=== PATIENT | female | born 1970 | race African-American/Black ===

== ENCOUNTER 2016-04-19 14:58 | Inpatient (IN) | payer MEDICARE ==
[~2016-04-19] VITALS: Ht 172.7 cm; Wt 83.1 kg
[~2016-04-19 14:58] MED LIST: UNKNOWN MEDICATIONS; [UNRECOGNIZED DRUG - OTHER]
[2016-04-19 19:13] VITALS: BP 126/73
[2016-04-19] MEDS ORDERED: INFLUENZA VIRUS VACCINE QVS 2016-17 (3YR+)/PF 60 MCG/0.5 ML SYRINGE IM ONE (19:15)
[2016-04-19] MEDS: OLANZapine 7.5 MG TABLET PO SCH (20:43)
[2016-04-20] MEDS ORDERED: LORazepam 2 MG/ML VIAL IM ONE ×2 (08:00→11:45)
[2016-04-20] MEDS ORDERED: DiphenhydrAMINE HCL 50 MG/ML VIAL IM ONE ×2 (08:00→11:45)
[2016-04-20] MEDS ORDERED: HALOPERIDOL LACTATE 5 MG/ML VIAL IM ONE ×2 (08:00→11:45)
[2016-04-20 08:08] VITALS: BP 125/92
[2016-04-20 08:40] LABS: BASOPHILS % (AUTO) 0.6 % (0.0-2.0); EOSINOPHILS % (AUTO) 2.5 % (1.0-6.0); HEMATOCRIT 37.9 % (36-46); HEMOGLOBIN 11.9 g/dL (12.0-16.0); LYMPHOCYTES # (AUTO) 1.4 K/uL (1.0-4.8); LYMPHOCYTES % (AUTO) 28.1 % (22.0-44.0); MEAN CORPUSCULAR HGB CONC 31.5 G/dL (31.0-37.0); MEAN CORPUSCULAR VOLUME 86 fL (80-100); MONOCYTES # (AUTO) 0.7 K/uL (0.1-1.0); MONOCYTES % (AUTO) 13.4 % (2.0-9.0); NEUTROPHILS # (AUTO) 2.8 K/uL (1.8-7.7); NEUTROPHILS % (AUTO) 55.4 % (40.0-70.0); PLATELET COUNT (AUTO) 243 K/uL (150-450); RED BLOOD CELL COUNT(AUTO) 4.41 MIL/uL (4.00-5.20); RED CELL DISTRIBUTION WIDTH 15.2 % (11.5-14.5)
[2016-04-20] MEDS: NICOTINE 21 MG/24 HOUR PATCH TD SCH (09:00)
[2016-04-20 09:05] LABS: HEMOGLOBIN A1C 5.7 % (4.5-6.2)
[2016-04-20 09:15] LABS: ALANINE AMINOTRANSFERASE 35 U/L (12-78); ALBUMIN 3.3 g/dL (3.4-5.0); ANION GAP 8 mmol/L (8-16); ASPARTATE AMINOTRANSFERASE 20 U/L (15-37); BILIRUBIN,TOTAL 0.3 mg/dL (0.1-1.0); CALCIUM, TOTAL 8.2 mg/dL (8.8-10.5); CARBON DIOXIDE 29 mmol/L (22-29); CHLORIDE 100 mmol/L (98-107); CREATININE 0.95 mg/dL (0.60-1.30); GLOMERULAR FILTR. RATE CALC > 60 mL/min (>60); POTASSIUM 4.4 mmol/L (3.5-5.1); SODIUM SERUM 137 mmol/L (136-145); THYROID STIMULATING HORMONE 1.74 uIU/mL (0.36-3.74); TOTAL PROTEIN, SERUM 6.4 g/dL (6.4-8.2); UREA NITROGEN, BLOOD 16 mg/dL (7-18)
[2016-04-20] MEDS ORDERED: IBUPROFEN 600 MG TABLET PO PRN (10:30)
[2016-04-20] MEDS ORDERED: ACETAMINOPHEN 325 MG TABLET PO PRN (10:30)
[2016-04-20] MEDS ORDERED: ONDANSETRON HCL 4 MG TABLET PO PRN (10:30)
[2016-04-20] MEDS ORDERED: ALBUTEROL SULFATE HFA 90 MCG/PUFF 8 GM INHALER IH PRN (10:30)
[2016-04-20] MEDS ORDERED: MAGNESIUM HYDROXIDE SUSPENSION 30 ML UDCUP PO PRN (10:30)
[2016-04-20] MEDS ORDERED: LOPERAMIDE HCL 2 MG CAPSULE PO PRN (10:30)
[2016-04-20] MEDS ORDERED: BENZOCAINE/MENTHOL LOZENGE MM PRN (10:30)
[2016-04-20] MEDS ORDERED: BACITRACIN 28.4 GM OINTMENT TP PRN (10:30)
[2016-04-20] MEDS ORDERED: MAG HYDROX/AL HYDROX/SIMETH ES 30 ML SUSPENSION UDCUP PO PRN (10:30)
[2016-04-20] MEDS ORDERED: CloNIDine HCL 0.1 MG TABLET PO PRN (10:30)
[2016-04-20] MEDS ORDERED: PETROLATUM,WHITE 71 GM JELLY TP PRN (10:30)
[2016-04-20 16:12] VITALS: BP 104/56
[2016-04-20] MEDS: LORazepam 2 MG TABLET PO PRN (20:26)
[2016-04-20] MEDS: OLANZapine 7.5 MG TABLET PO SCH (20:26)
[2016-04-20] MEDS: HALOPERIDOL 5 MG TABLET PO PRN (20:43)
[2016-04-21] MEDS ORDERED: LORazepam 2 MG/ML VIAL ONE (02:57)
[2016-04-21] MEDS ORDERED: DiphenhydrAMINE HCL 50 MG/ML VIAL ONE (02:57)
[2016-04-21] MEDS ORDERED: HALOPERIDOL LACTATE 5 MG/ML VIAL ONE (02:57)
[2016-04-21] MEDS ORDERED: LORazepam 2 MG/ML VIAL IM ONE (03:15)
[2016-04-21] MEDS ORDERED: HALOPERIDOL LACTATE 5 MG/ML VIAL IM ONE (03:15)
[2016-04-21] MEDS ORDERED: DiphenhydrAMINE HCL 50 MG/ML VIAL IM ONE (03:15)
[2016-04-21] MEDS: NICOTINE 21 MG/24 HOUR PATCH TD SCH (08:30)
[2016-04-21] MEDS: OLANZapine 7.5 MG TABLET PO SCH (21:00)
[2016-04-22 01:21] VITALS: BP 134/71
[2016-04-22 08:43] VITALS: BP 129/76
[2016-04-22] MEDS: NICOTINE 21 MG/24 HOUR PATCH TD SCH (08:51)
[2016-04-22] MEDS ORDERED: LORazepam 2 MG/ML VIAL ONE (09:26)
[2016-04-22] MEDS ORDERED: HALOPERIDOL LACTATE 5 MG/ML VIAL ONE (09:26)
[2016-04-22] MEDS ORDERED: DiphenhydrAMINE HCL 50 MG/ML VIAL ONE (09:26)
[2016-04-22] MEDS ORDERED: DiphenhydrAMINE HCL 50 MG/ML VIAL IM ONE (09:30)
[2016-04-22] MEDS ORDERED: HALOPERIDOL LACTATE 5 MG/ML VIAL IM ONE ×2 (09:30→10:45)
[2016-04-22] MEDS ORDERED: LORazepam 2 MG/ML VIAL IM ONE ×2 (09:30→10:45)
[2016-04-22 16:16] VITALS: BP 131/71
[2016-04-22] MEDS: OLANZapine 7.5 MG TABLET PO SCH (21:00)
[2016-04-23] MEDS ORDERED: HALOPERIDOL LACTATE 5 MG/ML VIAL IM ONE (05:00)
[2016-04-23] MEDS ORDERED: LORazepam 2 MG/ML VIAL IM ONE (05:00)
[2016-04-23] MEDS ORDERED: DiphenhydrAMINE HCL 50 MG/ML VIAL IM ONE (05:00)
[2016-04-23] MEDS: NICOTINE 21 MG/24 HOUR PATCH TD SCH (09:05)
[2016-04-23] MEDS: HALOPERIDOL 5 MG TABLET PO PRN (09:06)
[2016-04-23] MEDS: LORazepam 2 MG TABLET PO PRN ×2 (09:06→16:08)
[2016-04-23 16:05] VITALS: BP 136/79
[2016-04-23] MEDS: OLANZapine 7.5 MG TABLET PO SCH (20:34)
[2016-04-23] MEDS: ZOLPIDEM TARTRATE 10 MG TABLET PO PRN (20:39)
[2016-04-24] MEDS: LORazepam 2 MG TABLET PO PRN ×2 (02:37→21:36)
[2016-04-24] MEDS: HALOPERIDOL 5 MG TABLET PO PRN ×2 (02:37→21:36)
[2016-04-24] MEDS: NICOTINE 21 MG/24 HOUR PATCH TD SCH (08:32)
[2016-04-24 16:03] VITALS: BP 128/77
[2016-04-24] MEDS: OLANZapine 7.5 MG TABLET PO SCH ×2 (20:29→21:36)
[2016-04-25] MEDS ORDERED: HALOPERIDOL LACTATE 5 MG/ML VIAL ONE (00:07)
[2016-04-25] MEDS ORDERED: LORazepam 2 MG/ML VIAL ONE (00:07)
[2016-04-25] MEDS ORDERED: DiphenhydrAMINE HCL 50 MG/ML VIAL ONE (00:07)
[2016-04-25] MEDS ORDERED: HALOPERIDOL LACTATE 5 MG/ML VIAL IM ONE (00:15)
[2016-04-25] MEDS ORDERED: LORazepam 2 MG/ML VIAL IM ONE (00:15)
[2016-04-25] MEDS ORDERED: DiphenhydrAMINE HCL 50 MG/ML VIAL IM ONE (00:15)
[2016-04-25] MEDS: NICOTINE 21 MG/24 HOUR PATCH TD SCH (08:23)
[2016-04-25 08:30] VITALS: BP 126/67
[2016-04-25] MEDS: LORazepam 2 MG TABLET PO PRN (16:47)
[2016-04-25] MEDS: HALOPERIDOL 5 MG TABLET PO PRN (16:47)
[2016-04-25] MEDS: OLANZapine 7.5 MG TABLET PO SCH (21:04)
[2016-04-26] MEDS ORDERED: HALOPERIDOL LACTATE 5 MG/ML VIAL ONE (00:26)
[2016-04-26] MEDS ORDERED: DiphenhydrAMINE HCL 50 MG/ML VIAL ONE (00:26)
[2016-04-26] MEDS ORDERED: LORazepam 2 MG/ML VIAL ONE (00:26)
[2016-04-26] MEDS ORDERED: HALOPERIDOL LACTATE 5 MG/ML VIAL IM ONE (00:30)
[2016-04-26] MEDS ORDERED: LORazepam 2 MG/ML VIAL IM ONE (00:30)
[2016-04-26] MEDS ORDERED: DiphenhydrAMINE HCL 50 MG/ML VIAL IM ONE (00:30)
[2016-04-26] MEDS: LORazepam 2 MG TABLET PO PRN (08:28)
[2016-04-26] MEDS: NICOTINE 21 MG/24 HOUR PATCH TD SCH (08:29)
[2016-04-26] MEDS: OLANZapine 7.5 MG TABLET PO SCH (21:00)
[2016-04-27] MEDS ORDERED: DiphenhydrAMINE HCL 50 MG/ML VIAL ONE (02:48)
[2016-04-27] MEDS ORDERED: HALOPERIDOL LACTATE 5 MG/ML VIAL ONE (02:48)
[2016-04-27] MEDS ORDERED: LORazepam 2 MG/ML VIAL ONE (02:48)
[2016-04-27 02:55] VITALS: BP 115/67
[2016-04-27] MEDS: DiphenhydrAMINE HCL 50 MG/ML VIAL IM ONE ×2 (03:00→03:15)
[2016-04-27] MEDS: HALOPERIDOL LACTATE 5 MG/ML VIAL IM ONE ×2 (03:00→03:14)
[2016-04-27] MEDS: LORazepam 2 MG/ML VIAL IM ONE ×2 (03:00→03:14)
[2016-04-27] MEDS: LITHIUM CARBONATE 300 MG CAPSULE PO SCH ×2 (09:00→16:38)
[2016-04-27] MEDS: DIVALPROEX SODIUM 500 MG DR TABLET PO SCH ×2 (09:00→16:38)
[2016-04-27] MEDS: LORazepam 2 MG TABLET PO PRN ×2 (09:07→16:14)
[2016-04-27] MEDS: NICOTINE 21 MG/24 HOUR PATCH TD SCH (09:07)
[2016-04-27] MEDS ORDERED: DiphenhydrAMINE HCL 50 MG/ML VIAL IM ONE (12:30)
[2016-04-27] MEDS ORDERED: HALOPERIDOL LACTATE 5 MG/ML VIAL IM ONE (12:30)
[2016-04-27] MEDS ORDERED: LORazepam 2 MG/ML VIAL IM ONE (12:30)
[2016-04-27] MEDS: OLANZapine 10 MG TABLET PO SCH (21:00)
[2016-04-28 08:28] VITALS: BP 119/84
[2016-04-28] MEDS: LITHIUM CARBONATE 300 MG CAPSULE PO SCH ×2 (08:49→16:51)
[2016-04-28] MEDS: NICOTINE 21 MG/24 HOUR PATCH TD SCH (08:49)
[2016-04-28] MEDS: LORazepam 2 MG TABLET PO PRN ×2 (08:49→16:51)
[2016-04-28] MEDS: DIVALPROEX SODIUM 500 MG DR TABLET PO SCH ×2 (08:49→16:51)
[2016-04-28 16:14] VITALS: BP 109/59
[2016-04-28] MEDS: OLANZapine 10 MG TABLET PO SCH (21:03)
[2016-04-29 08:01] VITALS: BP 129/64
[2016-04-29] MEDS: NICOTINE 21 MG/24 HOUR PATCH TD SCH (09:00)
[2016-04-29] MEDS: LITHIUM CARBONATE 300 MG CAPSULE PO SCH ×2 (10:02→16:17)
[2016-04-29] MEDS: DIVALPROEX SODIUM 500 MG DR TABLET PO SCH ×2 (10:02→16:17)
[2016-04-29] MEDS: LORazepam 2 MG TABLET PO PRN ×3 (11:10→19:34)
[2016-04-29] MEDS ORDERED: DiphenhydrAMINE HCL 50 MG/ML VIAL IM ONE ×2 (14:00→15:00)
[2016-04-29] MEDS ORDERED: LORazepam 2 MG/ML VIAL IM ONE ×2 (14:00→15:00)
[2016-04-29] MEDS ORDERED: HALOPERIDOL LACTATE 5 MG/ML VIAL IM ONE (14:00)
[2016-04-29] MEDS ORDERED: DiphenhydrAMINE HCL 50 MG/ML VIAL ONE (14:02)
[2016-04-29] MEDS ORDERED: HALOPERIDOL LACTATE 5 MG/ML VIAL ONE (14:02)
[2016-04-29] MEDS ORDERED: LORazepam 2 MG/ML VIAL ONE (14:02)
[2016-04-29] MEDS: OLANZapine 10 MG TABLET PO SCH (20:23)
[2016-04-30 02:00] VITALS: BP 130/68
[2016-04-30] MEDS: LORazepam 2 MG TABLET PO PRN ×2 (08:17→16:46)
[2016-04-30 08:38] VITALS: BP 129/78
[2016-04-30] MEDS: NICOTINE 21 MG/24 HOUR PATCH TD SCH (09:00)
[2016-04-30] MEDS: DIVALPROEX SODIUM 500 MG DR TABLET PO SCH ×2 (09:19→16:46)
[2016-04-30] MEDS: LITHIUM CARBONATE 300 MG CAPSULE PO SCH ×2 (09:19→16:46)
[2016-04-30 16:20] VITALS: BP 114/61
[2016-04-30] MEDS: OLANZapine 10 MG TABLET PO SCH (20:25)
[2016-05-01 01:30] VITALS: BP 115/82
[2016-05-01 08:02] VITALS: BP 122/64
[2016-05-01] MEDS: DIVALPROEX SODIUM 500 MG DR TABLET PO SCH ×2 (09:19→16:31)
[2016-05-01] MEDS: LITHIUM CARBONATE 300 MG CAPSULE PO SCH ×2 (09:19→16:31)
[2016-05-01] MEDS: NICOTINE 21 MG/24 HOUR PATCH TD SCH (09:19)
[2016-05-01] MEDS: HALOPERIDOL 5 MG TABLET PO PRN ×2 (09:20→13:32)
[2016-05-01] MEDS: LORazepam 2 MG TABLET PO PRN ×3 (09:20→17:40)
[2016-05-01 16:05] VITALS: BP 123/71
[2016-05-01] MEDS: OLANZapine 10 MG TABLET PO SCH (20:16)
[2016-05-01] MEDS: ZOLPIDEM TARTRATE 10 MG TABLET PO PRN (22:41)
[2016-05-02 08:27] VITALS: BP 119/71
[2016-05-02] MEDS: LORazepam 2 MG TABLET PO PRN ×2 (08:33→20:50)
[2016-05-02] MEDS: HALOPERIDOL 5 MG TABLET PO PRN (08:33)
[2016-05-02] MEDS: NICOTINE 21 MG/24 HOUR PATCH TD SCH (08:33)
[2016-05-02] MEDS: LITHIUM CARBONATE 300 MG CAPSULE PO SCH ×2 (08:34→16:23)
[2016-05-02] MEDS: DIVALPROEX SODIUM 500 MG DR TABLET PO SCH ×2 (08:34→16:23)
[2016-05-02 16:16] VITALS: BP 118/74
[2016-05-02] MEDS: OLANZapine 10 MG TABLET PO SCH (21:00)
[2016-05-03] MEDS: HALOPERIDOL 5 MG TABLET PO PRN (03:17)
[2016-05-03] MEDS: LORazepam 2 MG TABLET PO PRN ×3 (03:17→16:13)
[2016-05-03 08:00] VITALS: BP 121/58
[2016-05-03] MEDS: NICOTINE 21 MG/24 HOUR PATCH TD SCH (09:00)
[2016-05-03] MEDS: DIVALPROEX SODIUM 500 MG DR TABLET PO SCH ×2 (09:11→16:13)
[2016-05-03] MEDS: LITHIUM CARBONATE 300 MG CAPSULE PO SCH ×2 (09:11→17:00)
[2016-05-03 16:04] VITALS: BP 125/64
[2016-05-03] MEDS: OLANZapine 10 MG TABLET PO SCH (20:27)
[2016-05-04] MEDS ORDERED: LORazepam 2 MG/ML VIAL ONE (03:38)
[2016-05-04] MEDS ORDERED: HALOPERIDOL LACTATE 5 MG/ML VIAL ONE (03:39)
[2016-05-04] MEDS ORDERED: DiphenhydrAMINE HCL 50 MG/ML VIAL ONE (03:39)
[2016-05-04] MEDS ORDERED: HALOPERIDOL LACTATE 5 MG/ML VIAL IM ONE (03:45)
[2016-05-04] MEDS ORDERED: DiphenhydrAMINE HCL 50 MG/ML VIAL IM ONE (03:45)
[2016-05-04] MEDS ORDERED: LORazepam 2 MG/ML VIAL IM ONE (03:45)
[2016-05-04 08:08] VITALS: BP 115/68
[2016-05-04] MEDS: DIVALPROEX SODIUM 500 MG DR TABLET PO SCH ×2 (09:28→16:24)
[2016-05-04] MEDS: NICOTINE 21 MG/24 HOUR PATCH TD SCH (09:28)
[2016-05-04] MEDS: LITHIUM CARBONATE 300 MG CAPSULE PO SCH ×2 (09:28→16:24)
[2016-05-04] MEDS: HALOPERIDOL 5 MG TABLET PO PRN ×2 (09:29→16:24)
[2016-05-04] MEDS: LORazepam 2 MG TABLET PO PRN ×2 (09:29→16:24)
[2016-05-04 16:27] VITALS: BP 131/80
[2016-05-04] MEDS: HALOPERIDOL 10 MG TABLET PO SCH (20:07)
[2016-05-04] MEDS: OLANZapine 10 MG TABLET PO SCH (20:08)
[2016-05-04] MEDS: ZOLPIDEM TARTRATE 10 MG TABLET PO PRN (21:01)
[2016-05-05 03:46] VITALS: BP 123/77
[2016-05-05 08:31] VITALS: BP 123/57
[2016-05-05] MEDS: NICOTINE 21 MG/24 HOUR PATCH TD SCH (08:40)
[2016-05-05] MEDS: LORazepam 2 MG TABLET PO PRN ×2 (08:40→16:29)
[2016-05-05] MEDS: DIVALPROEX SODIUM 500 MG DR TABLET PO SCH ×2 (08:40→16:08)
[2016-05-05] MEDS: LITHIUM CARBONATE 300 MG CAPSULE PO SCH ×2 (08:41→16:08)
[2016-05-05 16:06] VITALS: BP 116/66
[2016-05-05] MEDS: HALOPERIDOL 5 MG TABLET PO PRN (16:08)
[2016-05-05] MEDS: OLANZapine 10 MG TABLET PO SCH (20:13)
[2016-05-05] MEDS: HALOPERIDOL 10 MG TABLET PO SCH (20:13)
[2016-05-05] MEDS: ZOLPIDEM TARTRATE 10 MG TABLET PO PRN (21:01)
[2016-05-06] MEDS: LITHIUM CARBONATE 300 MG CAPSULE PO SCH ×2 (09:00→17:01)
[2016-05-06] MEDS: HALOPERIDOL 5 MG TABLET PO PRN (09:00)
[2016-05-06] MEDS: LORazepam 2 MG TABLET PO PRN ×2 (09:00→17:01)
[2016-05-06] MEDS: NICOTINE 21 MG/24 HOUR PATCH TD SCH (09:00)
[2016-05-06] MEDS: DIVALPROEX SODIUM 500 MG DR TABLET PO SCH ×2 (09:00→17:01)
[2016-05-06 16:05] VITALS: BP 136/75
[2016-05-06] MEDS: HALOPERIDOL 10 MG TABLET PO SCH (20:21)
[2016-05-06] MEDS: OLANZapine 10 MG TABLET PO SCH (20:21)
[2016-05-07 02:56] VITALS: BP 115/70
[2016-05-07 08:11] VITALS: BP 125/76
[2016-05-07] MEDS: DIVALPROEX SODIUM 500 MG DR TABLET PO SCH ×2 (08:58→16:24)
[2016-05-07] MEDS: NICOTINE 21 MG/24 HOUR PATCH TD SCH (08:58)
[2016-05-07] MEDS: LITHIUM CARBONATE 300 MG CAPSULE PO SCH ×2 (08:58→16:24)
[2016-05-07 16:03] VITALS: BP 122/74
[2016-05-07] MEDS: LORazepam 2 MG TABLET PO PRN (20:25)
[2016-05-07] MEDS: OLANZapine 10 MG TABLET PO SCH (20:55)
[2016-05-07] MEDS: HALOPERIDOL 10 MG TABLET PO SCH (20:55)
[2016-05-08 06:40] VITALS: BP 132/78
[2016-05-08] MEDS: NICOTINE 21 MG/24 HOUR PATCH TD SCH (08:23)
[2016-05-08] MEDS: LITHIUM CARBONATE 300 MG CAPSULE PO SCH (08:23)
[2016-05-08] MEDS: DIVALPROEX SODIUM 500 MG DR TABLET PO SCH (08:23)
[2016-05-08 08:31] VITALS: BP 118/73
[2016-05-08] MEDS ORDERED: HALO10 PO (15:24)
[2016-05-08] MEDS ORDERED: OLAN10TA3 PO (15:24)
[2016-05-08] MEDS ORDERED: DIVA500T35 PO (15:24)
[2016-05-08] MEDS ORDERED: LITH300C3 PO (15:24)
== END 2016-05-08 17:04 | disposition home or self-care (01) | DRG 885 ==
LOC: B3A 18:21
PROVIDERS: ADMIT Psychiatry & Neurology Psychiatry; ATTEND Psychiatry & Neurology Psychiatry
DX: F25.9 Schizoaffective disorder, unspecified (principal); F31.9 Bipolar disorder, unspecified; E83.51 Hypocalcemia; F12.90 Cannabis use, unspecified, uncomplicated; F17.210 Nicotine dependence, cigarettes, uncomplicated; Z71.6 Tobacco abuse counseling; Z98.890 Other specified postprocedural states; Z71.51 Drug abuse counseling and surveillance of drug abuser; Z88.1 Allergy status to other antibiotic agents; Z91.048 Other nonmedicinal substance allergy status
CPT/HCPCS: 83036; 84439; 84443; 87081; J1200; J1630; J2060; J3230

== ENCOUNTER 2016-12-11 10:45 | Emergency (ER) | payer MEDICARE ==
[~2016-12-11] VITALS: Ht 172.7 cm; Wt 75.0 kg
[~2016-12-11 10:45] MED LIST changes: +DIVA500T35 PO; +HALO10 PO; +LITH300C3 PO; +OLAN10TA3 PO; -UNKNOWN MEDICATIONS; -[UNRECOGNIZED DRUG - OTHER]
[2016-12-11] MEDS ORDERED: MUPIROCIN CALCIUM 2% 22 GM OINTMENT TP ONE (13:15)
[2016-12-11 13:51] VITALS: BP 141/77
== END 2016-12-11 13:51 | disposition home or self-care (01) ==
LOC: EMS 10:48
DX: L73.9 Follicular disorder, unspecified (principal); F17.210 Nicotine dependence, cigarettes, uncomplicated; Z88.1 Allergy status to other antibiotic agents; Z88.8 Allergy status to other drugs, medicaments and biological substances
CPT/HCPCS: 99282; 99283

== ENCOUNTER 2018-04-06 09:22 | Emergency (ER) | payer MEDICARE ==
[~2018-04-06 09:22] MED LIST changes: +DIVA-78 PO; -DIVA500T35 PO; -LITH300C3 PO
== END 2018-04-06 10:05 | disposition left against medical advice (07) ==
LOC: EMS 09:23
DX: R10.13 Epigastric pain (principal); Z53.21 Procedure and treatment not carried out due to patient leaving prior to being seen by health care provider